=== PATIENT | male | born 1995 | race Caucasian/White ===

== ENCOUNTER 2018-09-28 05:48 | Emergency (ER) | payer MEDICAID ==
[~2018-09-28] VITALS: Ht 172.7 cm; Wt 65.8 kg
[2018-09-28 05:48] VITALS: BP 127/70
--- NOTE | 2018-09-28 05:48 | NUR ---
PT BIB [facility], PRE-BOOK. PT TAKEN TO CHAIR E
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
--- NOTE | 2018-09-28 06:15 | NUR ---
PT TAKEN TO CT VIA WHEELCHAIR
--- NOTE | 2018-09-28 06:25 | NUR ---
PT RETURNED FROM CT VIZ WHEELCHAIR
--- NOTE | 2018-09-28 07:24 | NUR ---
Demetria lee in EDM - 09/28/18 at 0730 by MARIANA PATIENT AWAWKE ALERT ORIENTED.SITTING IN THE CHAIR WITH [facility]. PD. AWAITING FOR DISPOSITION
--- NOTE | 2018-09-28 07:24 | NUR ---
PATIENT AWAKE ALERT ORIENTED. SITTING ON THE CHAIR WITH [facility]. AWAITING FOR DISPOSITION
--- NOTE | 2018-09-28 07:31 | NUR ---
SEEN BY DR. VICTORIA
[2018-09-28 07:54] VITALS: BP 118/72
--- NOTE | 2018-09-28 07:54 | NUR ---
PATIENT EXAMINED BY DR. VICTORIA. PATIENT MEDICALLY CLEARED AND RELEASED IN CUSTODY IN STABLE CONDITION. ORIGINAL PRE-BOOK FORM GIVEN TO OFFICER BEVERLY. PT AMBULATED WITH STEADY GAIT. VSS UPON DISCHARGE. DISCHARGE INSTRUCTIONS GIVEN TO OFFICER BEVERLY.
== END 2018-09-28 07:54 ==
LOC: MED 05:48
DX: F10.129 Alcohol abuse with intoxication, unspecified (principal); Z02.89 Encounter for other administrative examinations
CPT/HCPCS: 70450; 72125; 99284